=== PATIENT | female | born 1940 | race Hispanic/Latino ===

== ENCOUNTER 2018-06-13 08:28 | Outpatient (CLI) | payer MEDICARE | END 2018-06-13 08:29 | disposition home or self-care (01) | LOC: PAT 08:28 ==

== ENCOUNTER 2018-06-28 13:32 | Outpatient (CLI) | payer MEDICARE | END 2018-06-28 13:33 | disposition home or self-care (01) | LOC: RAD 13:33 | DX: Z01.818 Encounter for other preprocedural examination (principal) ==

== ENCOUNTER 2018-07-21 08:00 | Day surgery (SDC) | payer MEDICARE ==
[2018-07-10 12:48] VITALS: BMI 31.6
[2018-07-21] MEDS ORDERED: Propofol 10 mg/ml Inj (20 ML) ONE (10:19)
[2018-07-21] MEDS ORDERED: Midazolam 2 MG/2 ML VIAL ONE (10:19)
[2018-07-21] MEDS ORDERED: Rocuronium 10 mg/ml (5 ml) ONE (10:21)
[2018-07-21] MEDS ORDERED: Bupivacaine 0.5% 50 ML IJ ONE ×2 (10:26→11:38)
[2018-07-21] MEDS ORDERED: Lactated Ringer's 1,000 ML IV SCH (10:45)
[2018-07-21] MEDS ORDERED: HYDROmorphone 0.5 mg/0.5 ml ISec IVP PRN (10:45)
[2018-07-21] MEDS ORDERED: Glycopyrrolate 0.2 mg/ml (2ml vial) ONE (11:20)
[2018-07-21] MEDS ORDERED: Neostigmine Methylsulfate 3mg/3ml Syringe IV ONE (11:20)
--- NOTE | 2018-07-21 11:42 | PCM.SURG1 ---
Surgeon's Initial Post Op Note - Surgeon's Notes Surgeon: Dr Spencer Instrument Technician Helper: Dr Gutierrez PGY4, Dr Goodwin PGY3 Type of Anesthesia: General Endo Anesthesia Administered By: Dr Morales Pre-Operative Diagnosis: Right inguinal hernia Operative Findings: dictation Post-Operative Diagnosis: right indirect inguinal hernia Operation Performed: right inguinal herniorapphy Specimen/Specimens Removed: 1. cord lipoma. 2. hernia sac Estimated Blood Loss: EBL {In ML}: 10 Blood Products Given: N/A Drains Used: No Drains Post-Op Condition: Good Date of Surgery/Procedure: 07/21/18 Time of Surgery/Procedure: 11:41
[2018-07-21] MEDS ORDERED: Oxycodone/Acetaminophen 5/325 mg Tab PO PRN (11:43)
[2018-07-21 12:02] VITALS: RESP 18
[2018-07-21] MEDS ORDERED: HYDROmorphone 0.5 mg/0.5 ml ISec ONE (12:08)
[2018-07-21 13:05] VITALS: BP 135/57; PULSE 66; TEMP 97; O2SAT 96
--- NOTE | 2018-07-22 03:47 | OP ---
PROCEDURE DATE: 07/21/2018 PREOPERATIVE DIAGNOSIS: Right inguinal hernia. POSTOPERATIVE DIAGNOSIS: Right inguinal hernia. PROCEDURE: Right inguinal hernia repair with mesh. SURGEON: Alexander Spencer MD ASSISTANTS: Ag Gutierrez DO, PGY4 as well as Joni Goodwin DO, PGY3. ANESTHESIOLOGIST: Dr. Morales. INDICATIONS: Mrs. Lanza is a pleasant 78-year-old woman who developed a symptomatic right inguinal hernia over the past several years. She has been seen in [facility], and the patient reported that the hernia was continuing to give her discomfort and pain especially with ambulation and physical activity though the hernia has been reducible throughout its existence. Surgical repair was indicated due to her discomfort, and we recommended using a prosthetic mesh given the patient's age, the nature of her hernia, and just the overall operative preference. The risks, benefits, and alternatives of the procedure were explained by Dr. Spencer in the clinic as well as by myself in the preoperative room including the risk of not operating. Informed consent was then obtained by myself, Dr. Gutierrez, and cosigned by Dr. Spencer for a right inguinal hernia repair with mesh for which we performed today. DESCRIPTION OF PROCEDURE: The patient was then brought to the operating room where the surgical safety checklist was performed, preoperatively 2 g of Ancef were administered and general anesthesia was used. In the supine position, the right groin was prepped and draped in a sterile fashion. Scalpel was then used to make an oblique incision parallel and superior to the inguinal ligament. This was deep into Vishal's and Camper's fascia using electrocautery down to the external oblique aponeurosis. The external oblique aponeurosis was opened in the direction of its fibers through the external ring using a scalpel as well as Metzenbaum scissors. The ilioinguinal nerve was not identified at this time. The external oblique was then placed with hemostat and then moved laterally out of the way. The inguinal flow was exposed by creating a superior and inferior flaps of the external oblique. The round ligament was identified and mobilized at the pubic tubercle and isolated using a Santos drain. This was done by dissecting the cremasteric fibers from the spermatic ligament as well as blunt dissection with the finger. The anterior and medial aspect of the cord was examined and indirect hernia sac was identified. The sac was carefully dissected free of the cord down to the level of the internal ring. At this point, the sac was opened to examine for the contents which there were none, and there was a bit of fluid in the peritoneal cavity, this was suctioned out. The sac was then sutured, ligated using 2-0 Vicryl suture, and any redundant sac was excised using electrocautery. Additionally, the cord lipoma was removed in a similar fashion 2-0 silk suture and then removed with electrocautery. Both of these were sent off to pathology. The stump of the sac was checked for hemostasis and then allowed to retract into the abdomen. At this point, BPHS was fashioned, the lateral aspect was trimmed down to compensate for the smaller size of the patient's inguinal canal, and then placed in the indirect defect to restore the normal anatomy of the internal ring. This was then sutured into place using 2-0 Vicryl sutures to secure the PHS down to the inguinal ligament and three separate spots as well as the conjoined tendon and three separate spots superiorly. The floor of the inguinal canal was then further assessed digitally and found to be intact. No further repair was warranted. The ends of the patch were trimmed to fit within the inguinal canal and then tugged underneath the folds of the external oblique to ensure that they were lying flat without any folds or crumbles. The [place] was removed and the cord itself was allowed to return to its normal anatomic location above the mesh. Hemostasis was achieved using electrocautery. The external oblique aponeurosis was then reapproximated using a cutaneous 3-0 Vicryl suture paying particular attention to make sure that no ilioinguinal nerve would be caught within the closure. Vishal's fascia was then closed with 3-0 Vicryl again in a continuous fashion, and then the skin was closed using a 4-0 subcuticular continuous monofilament suture. The operative field was cleaned and draped and then Dermabond was applied. There were no intraoperative complications. Estimated blood loss was approximately 10 mL. All instruments and sponge counts were correct. Surgical ____ was performed. The patient was extubated and transferred to PACU in stable condition. Ag GutierrezDO Alexander Spencer MD [facility] # [id number]
== END 2018-07-21 17:35 | disposition home or self-care (01) ==
LOC: SDS 08:00
PROVIDERS: ATTEND General Practice
DX: K40.90 Unilateral inguinal hernia, without obstruction or gangrene, not specified as recurrent (principal); D17.72 Benign lipomatous neoplasm of other genitourinary organ
CPT/HCPCS: 49505; 88302; C1781; J0690; J1170; J1885; J2001; J2250; J2405; J2704; J2710; J3010; J7120 ×2